=== PATIENT | female | born 1970 | race Caucasian/White ===

== ENCOUNTER 2016-06-22 08:19 | Outpatient (CLI) | payer MEDICAID ==
[~2016-06-22] VITALS: Ht 166.4 cm; Wt 123.8 kg
[~2016-06-22 08:19] MED LIST: ALBU8.5H2 IH; ALPR1TAB2 PO; CEFD300C3 PO; CLON1TAB PO; CLON2TAB PO; DCS100C PO; GEMF600T3 PO; HYDR-2856 PO; HYDR-34 PO; HYDR-3816 PO; IBP600T1 PO; IBUP-1773 PO; LEVO150T PO; LEVO175T3 PO; METF-380 PO; METR500T PO; NITR100C44 PO; OMEP-10 PO; OMEP40CA36 PO; SIMV20TA3 PO; SULF-222 PO; Simethicone PO
--- OUTSIDE RECORDS SUMMARY | 2016-06-22 08:23 | XMS REPORT | Continuity of Care Document ---
Author Author [facility] Organization [facility] Address Unknown Phone Unavailable Care Team Providers Care Mechanical Integrity Engineer Name Role Phone Ganesh Cam PCP [phone] Source Comments Some departments are not documenting in the electronic medical record. If you do not see the information that you expected, contact Release of Information in the Health Information Management department at [phone] for further assistance in locating additional records.[facility] Active Allergies and Adverse Reactions Allergen Noted Date Severity Reactions Comments Actos 11/03/2010 High SEE COMMENTS Blood sugar went from 200's to 600 after taking the Actos. Aspirin 10/12/2010 High ANAPHYLAXIS, HIVES Ciprofloxacin 10/12/2010 Medium HIVES Demerol 10/12/2010 High ANAPHYLAXIS Feels like an out of body experience. Then Severe Panic attack. Lavender (Lavandula 11/03/2010 High ANAPHYLAXIS Angustifolia) Mushroom 11/03/2010 High ANAPHYLAXIS Prednisone 10/12/2010 Medium SHORTNESS OF BREATH, PALPITATIONS Current Medications Prescription Sig. Disp. Refills Start End Date Status Date metformin (GLUCOPHAGE) Take 1,000 mg by mouth Active 500 mg PO tablet twice daily with meals. lovastatin(+) (MEVACOR) Take 40 mg by mouth at Active 40 mg PO tablet bedtime daily. gemfibrozil (LOPID) 600 Take 600 mg by mouth Active mg PO tablet twice daily. omeprazole DR(+) Take 40 mg by mouth Active (PRILOSEC) 40 mg PO daily. capsule IBUPROFEN IB PO Take 800 mg by mouth Active every 8 hours. ALBUTEROL IN Inhale 2 Inhalers by Active mouth as Needed. CLONAZEPAM (KLONOPIN PO) Take 1 mg by mouth three Active times daily. cyclobenzaprine Take 10 mg by mouth three Active (FLEXERIL) 10 mg PO times daily as needed. tablet hydrOXYzine (ATARAX) 25 Take 25 mg by mouth three Active mg PO tablet times daily as needed. calcitriol (ROCALTROL) Take 1 Cap by mouth twice 60 Cap 0 11/12/19 Active 0.25 mcg PO capsule daily. 11 calcium carbonate Take 2 Tabs by mouth 90 Tab 0 11/12/19 Active (OS-GUSTAVO) 1250 mg PO three times daily with 11 tablet meals. hydrocodone/acetaminophen Take 1 Tab by mouth every 60 Tab 0 11/12/19 Active (VICODIN) 5/500 mg PO 4 hours as needed for 11 tablet Pain. senna/docusate Take 1 Tab by mouth 60 Tab 0 11/12/19 Active (SENOKOT-S) 8.6/50 mg PO daily. 11 tablet Active Problems Not on file Social History Tobacco Use Types Packs/Day Years Used Date Current Every Day Smoker Cigarettes 1 28 Alcohol Use Drinks/Week oz/Week Comments Yes rare use Last Filed Vital Signs Vital Sign Reading Time Taken Blood Pressure 126/75 11/16/2010 1:22 PM CDT Pulse 83 11/16/2010 1:22 PM CDT Temperature 37.1 C (98.7 F) 11/16/2010 1:22 PM CDT Respiratory Rate - - Height 1.67 m (5' 5.75") 11/16/2010 1:22 PM CDT Weight 146.421 kg (322 lb 12.8 11/16/2010 1:22 PM CDT oz) Body Mass Index 52.5 11/16/2010 1:22 PM CDT Oxygen Saturation 96% 11/11/2010 9:56 AM CDT Plan of Care Health Maintenance Due Date Last Done Comments Physical (Comprehensive) 1977 Exam Pertussis Vaccine 1981 Tetanus Vaccine 1987 Cervical Cancer Screening 1991 Breast Cancer Screening 2010 Influenza Vaccine 02/02/2016 Results from Last 3 Months Not on file
[2016-06-22] MEDS ORDERED: IBUP-1773 PO (08:36)
[2016-06-22] MEDS ORDERED: ALPR2TAB6 PO (08:36)
[2016-06-22] MEDS ORDERED: OXYC-465 PO (08:36)
[2016-06-22] MEDS ORDERED: PANT40TA3 PO (08:36)
[2016-06-22] MEDS ORDERED: OXYC10TA55 PO (08:36)
== END 2016-06-22 08:37 ==
LOC: PREOP 08:19
PROVIDERS: ATTEND Orthopaedic Surgery
DX: M75.102 Unspecified rotator cuff tear or rupture of left shoulder, not specified as traumatic (principal)

== ENCOUNTER 2016-06-27 07:16 | Day surgery (SDC) | payer MEDICAID ==
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
[~2016-06-27] VITALS: Ht 166.4 cm; Wt 123.8 kg
[~2016-06-27 07:16] MED LIST changes: +ALPR2TAB6 PO; +OXYC-465 PO; +OXYC10TA55 PO; +PANT40TA3 PO
[2016-06-27 07:20] VITALS: BP 142/80
--- OUTSIDE RECORDS SUMMARY | 2016-06-27 07:21 | XMS REPORT | Continuity of Care Document ---
Author Author [facility] Organization [facility] Address Unknown Phone Unavailable Care Team Providers Care Hardware Engineering Manager Name Role Phone Ganesh Cam PCP [phone] Source Comments Some departments are not documenting in the electronic medical record. If you do not see the information that you expected, contact Release of Information in the Health Information Management department at [phone] for further assistance in locating additional records.[facility] Active Allergies and Adverse Reactions Allergen [...]
--- OUTSIDE RECORDS SUMMARY | 2016-06-27 07:21 | XMS REPORT | Continuity of Care Document ---
Author Author [facility] Organization [facility] Address Unknown Phone Unavailable Care Team Providers Care Drawing Supervisor Name Role Phone Ganesh Cam PCP [phone] Source Comments Some departments are not documenting in the electronic medical record. If you do not see the information that you expected, contact Release of Information in the Health Information Management department at [phone] for further assistance in locating additional records.[facility] Active Allergies and Adverse Reactions Allergen [...]
--- NOTE | 2016-06-27 07:27 | Progress Note-Pre Operative ---
Pre-Operative Progress Note H&P Reviewed The H&P was reviewed, patient examined and no changes noted. Date H&P Reviewed: Jun 27, 2016 Time H&P Reviewed: 07:27 Pre-Operative Diagnosis: left shoulder rotator cuff tear DORA BOONE MD Jun 27, 2016 07:27
--- NOTE | 2016-06-27 07:28 | Progress Note-Post Operative ---
Post-Operative Progess Note Java Mobile Developer Scott Weeks Pre-Operative Diagnosis left shoulder rotator cuff tear Post-Operative Diagnosis left shoulder SLAP tear, labral tear and impingement Post-Op Procedure Note Date of Procedure: Jun 27, 2016 Name of Procedure: left shoulder arthroscopic biceps tenotomy, labral debridement and acromioplasty Anesthesia Type GETA Estimated blood loss (mL): minimal Packing: none Specimen(s) collected none DORA BOONE MD Jun 27, 2016 07:28
[2016-06-27] MEDS ORDERED: oxyCODONE/APAP 5/325MG (PERCOCET 5) TABLET PO PRN (07:30)
[2016-06-27] MEDS ORDERED: ceFAZolin 1 GM/NS 50 ML IVPB IV ONE ×2 (07:45)
[2016-06-27] MEDS ORDERED: FAMOTIDINE 20MG/2ML IV (PEPCID) IV ONE (07:45)
[2016-06-27] MEDS: LACTATED RINGERS 1,000 ML IV PRN ×2 (08:07→09:45)
[2016-06-27] MEDS ORDERED: MIDAZOLAM 2 MG/2 ML (VERSED) VIAL ONE (08:21)
[2016-06-27] MEDS ORDERED: fentaNYL INJECTION 100 MCG/2 ML AMP ONE ×3 (08:21→10:12)
[2016-06-27] MEDS ORDERED: BUPIVACAINE 0.25% 30 ML (SENSORCAINE) VIAL ONE (08:33)
[2016-06-27] MEDS ORDERED: NEOSTIGMINE (BLOXIVERZ ) 1 MG/1ML 10 ML VIAL ONE (09:58)
[2016-06-27] MEDS ORDERED: LACTATED RINGERS 2,000 ML IV ONE (09:58)
[2016-06-27] MEDS ORDERED: GLYCOPYRROLATE 0.2 MG/ML (ROBINUL) 2 ML VIAL ONE (09:58)
[2016-06-27] MEDS ORDERED: proPOfol 200 MG/20 ML (DIPRIVAN) VIAL IV ONE (09:58)
[2016-06-27] MEDS ORDERED: ROCURONIUM 50 MG/5 ML (ZEMURON) VIAL IV ONE (09:58)
[2016-06-27] MEDS ORDERED: SEVOFLURANE (ULTANE) 15 ML INHAL SOLN ONE (09:58)
[2016-06-27] MEDS ORDERED: LIDOCAINE PF 2% 10 ML (XYLOCAINE) AMP ONE (09:58)
[2016-06-27] MEDS ORDERED: ONDANSETRON 4 MG/2 ML (SDV) Z0FRAN ONE (09:58)
[2016-06-27] MEDS: fentaNYL INJECTION 100 MCG/2 ML AMP IVP PRN ×3 (10:25→10:35)
[2016-06-27 11:10] VITALS: BP 131/98
[2016-06-27 11:40] VITALS: BP 121/71
[2016-06-27 12:10] VITALS: BP 116/61
[2016-06-27 16:44] VITALS: BP 116/61
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
== END 2016-06-27 12:45 | disposition home or self-care (01) ==
LOC: SDC 07:16
PROVIDERS: ATTEND Orthopaedic Surgery
DX: M75.102 Unspecified rotator cuff tear or rupture of left shoulder, not specified as traumatic (principal); E11.9 Type 2 diabetes mellitus without complications; K21.9 Gastro-esophageal reflux disease without esophagitis; F41.9 Anxiety disorder, unspecified; E03.9 Hypothyroidism, unspecified; Z85.850 Personal history of malignant neoplasm of thyroid; F17.210 Nicotine dependence, cigarettes, uncomplicated; Z11.2 Encounter for screening for other bacterial diseases; Z79.899 Other long term (current) drug therapy
CPT/HCPCS: 82962; 87081

== ENCOUNTER 2016-07-03 09:59 | Outpatient (RCR) | payer MEDICAID ==
--- OUTSIDE RECORDS SUMMARY | 2016-06-28 09:49 | XMS REPORT | Continuity of Care Document ---
Author Author [facility] Organization [facility] Address Unknown Phone Unavailable Care Team Providers Care Dermatology Nurse Practitioner Name Role Phone Ganesh Cam PCP [phone] Source Comments Some departments are not documenting in the electronic medical record. If you do not see the information that you expected, contact Release of Information in the Health Information Management department at [phone] for further assistance in locating additional records.[facility] Active Allergies and Adverse Reactions Allergen Noted [...]
== END 2016-07-09 09:20 | disposition home or self-care (01) ==
PROVIDERS: ATTEND Orthopaedic Surgery
DX: M25.512 Pain in left shoulder (principal)

== ENCOUNTER 2016-07-19 08:26 | Outpatient (CLI) | payer MEDICAID ==
[~2016-07-19] VITALS: Ht 166.4 cm; Wt 123.8 kg
--- OUTSIDE RECORDS SUMMARY | 2016-07-19 08:29 | XMS REPORT | Continuity of Care Document ---
Author Author [facility] Organization [facility] Address Unknown Phone Unavailable Care Team Providers Care Traffic Monitor Specialist Name Role Phone Ganesh Cam PCP [phone] Source Comments Some departments are not documenting in the electronic medical record. If you do not see the information that you expected, contact Release of Information in the Health Information Management department at [phone] for further assistance in locating additional records.[facility] Active Allergies and Adverse Reactions Allergen [...]
== END 2016-07-19 08:32 ==
LOC: PREOP 08:26
PROVIDERS: ATTEND Orthopaedic Surgery
DX: Z01.818 Encounter for other preprocedural examination (principal); M22.41 Chondromalacia patellae, right knee

== ENCOUNTER 2016-07-25 06:01 | Day surgery (SDC) | payer MEDICAID ==
[~2016-07-25] VITALS: Ht 166.4 cm; Wt 123.8 kg
--- OUTSIDE RECORDS SUMMARY | 2016-07-25 06:05 | XMS REPORT | Continuity of Care Document ---
Author Author [facility] Organization [facility] Address Unknown Phone Unavailable Care Team Providers Care Garment Folder Name Role Phone Ganesh Cam PCP [phone] Source Comments Some departments are not documenting in the electronic medical record. If you do not see the information that you expected, contact Release of Information in the Health Information Management department at [phone] for further assistance in locating additional records.[facility] Active Allergies and Adverse Reactions Allergen [...]
--- OUTSIDE RECORDS SUMMARY | 2016-07-25 06:06 | XMS REPORT | Continuity of Care Document ---
Author Author [facility] Organization [facility] Address Unknown Phone Unavailable Care Team Providers Care Endodontic Assistant Name Role Phone Ganesh Cam PCP [phone] Source Comments Some departments are not documenting in the electronic medical record. If you do not see the information that you expected, contact Release of Information in the Health Information Management department at [phone] for further assistance in locating additional records.[facility] Active Allergies and Adverse Reactions Allergen [...]
[2016-07-25] MEDS ORDERED: NS (IVPB) 50 ML ONE (06:33)
[2016-07-25] MEDS ORDERED: ceFAZolin 1,000 MG (ANCEF) VIAL ONE (06:33)
[2016-07-25 06:42] VITALS: BP 120/88
[2016-07-25] MEDS ORDERED: ceFAZolin 1 GM/NS 50 ML IVPB IV ONE ×2 (06:45)
[2016-07-25] MEDS ORDERED: CATHETER FLUSH 10 ML SYR IV PRN (06:45)
[2016-07-25] MEDS ORDERED: SEVOFLURANE (ULTANE) 15 ML INHAL SOLN ONE (06:52)
[2016-07-25] MEDS ORDERED: fentaNYL INJECTION 100 MCG/2 ML AMP ONE ×2 (06:52→07:48)
[2016-07-25] MEDS ORDERED: LIDOCAINE PF 2% 10 ML (XYLOCAINE) AMP ONE (06:52)
[2016-07-25] MEDS ORDERED: MIDAZOLAM 2 MG/2 ML (VERSED) VIAL ONE ×2 (06:52→06:55)
[2016-07-25] MEDS ORDERED: proPOfol 200 MG/20 ML (DIPRIVAN) VIAL IV ONE (06:52)
[2016-07-25] MEDS ORDERED: ONDANSETRON 4 MG/2 ML (SDV) Z0FRAN ONE (06:52)
[2016-07-25] MEDS ORDERED: LACTATED RINGERS 1,000 ML IV ONE ×2 (06:52→07:57)
[2016-07-25] MEDS ORDERED: FAMOTIDINE 20MG/2ML IV (PEPCID) ONE (06:56)
[2016-07-25] MEDS ORDERED: BUPIVACAINE 0.25% 30 ML (SENSORCAINE) VIAL ONE (07:08)
[2016-07-25] MEDS ORDERED: morphine PF (DURAMORPH) 10 MG/10 ML AMP ONE (07:08)
--- NOTE | 2016-07-25 07:12 | Progress Note-Pre Operative ---
Pre-Operative Progress Note H&P Reviewed The H&P was reviewed, patient examined and no changes noted. Date H&P Reviewed: Jul 25, 2016 Time H&P Reviewed: 07:11 Pre-Operative Diagnosis: right knee chondromalacia DORA BOONE MD Jul 25, 2016 07:12
--- NOTE | 2016-07-25 07:13 | Progress Note-Post Operative ---
Post-Operative Progess Note Firewood Cutter Scott Weeks Pre-Operative Diagnosis right knee chondromalacia Post-Operative Diagnosis right knee chondromalacia Post-Op Procedure Note Date of Procedure: Jul 25, 2016 Name of Procedure: right knee arthroscopic chondroplasty Anesthesia Type GETA Estimated blood loss (mL): minimal Packing: none Specimen(s) collected none DORA BOONE MD Jul 25, 2016 07:13
[2016-07-25] MEDS ORDERED: LACTATED RINGERS 1,000 ML IV PRN (07:22)
[2016-07-25] MEDS ORDERED: HYDROcodone/APAP 7.5 MG/325 MG (LORTAB, LORCET PLUS) TABLET PO PRN (07:30)
[2016-07-25] MEDS ORDERED: MIDAZOLAM 2 MG/2 ML (VERSED) VIAL IV ONE (07:30)
[2016-07-25] MEDS ORDERED: FAMOTIDINE 20MG/2ML IV (PEPCID) IV ONE (07:30)
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
--- NOTE | 2016-07-25 07:58 | Progress Note-Post Operative ---
Post-Operative Progess Note Operator Lights Scott Weeks Pre-Operative Diagnosis right knee chondromalacia Post-Operative Diagnosis right knee chondromalacia of the medial femoral condyle, medial tibial plateau, lateral tibial plateau, patella and trochlea Post-Op Procedure Note Date of Procedure: Jul 25, 2016 Name of Procedure: right knee arthroscopic chondroplasty of the medial femoral condyle, medial tibial plateau, lateral tibial plateau, patella and trochlea Anesthesia Type geta Estimated blood loss (mL): minimal Packing: none Specimen(s) collected none DORA BOONE MD Jul 25, 2016 07:58
[2016-07-25] MEDS ORDERED: ONDANSETRON 4 MG/2 ML (SDV) Z0FRAN IVP PRN (08:15)
[2016-07-25] MEDS ORDERED: fentaNYL INJECTION 100 MCG/2 ML AMP IVP PRN (08:15)
[2016-07-25 08:50] VITALS: BP 123/76
[2016-07-25 09:20] VITALS: BP 120/80
[2016-07-25 09:36] VITALS: BP 120/80
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
== END 2016-07-25 09:36 | disposition home or self-care (01) ==
LOC: SDC 06:01
PROVIDERS: ATTEND Orthopaedic Surgery
DX: M22.41 Chondromalacia patellae, right knee (principal); E11.9 Type 2 diabetes mellitus without complications; K21.9 Gastro-esophageal reflux disease without esophagitis; F41.9 Anxiety disorder, unspecified; E03.9 Hypothyroidism, unspecified; F17.210 Nicotine dependence, cigarettes, uncomplicated; Z11.2 Encounter for screening for other bacterial diseases
CPT/HCPCS: 82962; 87081

== ENCOUNTER → 2016-09-05 | Outpatient (CLI) | payer MEDICAID ==
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
== END ==
LOC: RAD 07:47
PROVIDERS: ATTEND Nurse Practitioner Family
DX: N60.11 Diffuse cystic mastopathy of right breast (principal); N60.12 Diffuse cystic mastopathy of left breast
CPT/HCPCS: 77066

== ENCOUNTER 2016-12-18 07:58 | Outpatient (RCR) | payer MEDICAID ==
[2016-12-18 08:53] LABS: BASOPHILS # (AUTO) 0.1 10^3/uL (0.0-0.1); BASOPHILS % (AUTO) 1 % (0-10); EOSINOPHILS # (AUTO) 0.3 10^3/uL (0.0-0.3); EOSINOPHILS % (AUTO) 3 % (0-10); LYMPHOCYTES # (AUTO) 2.3 X 10^3 (1.0-4.0); LYMPHOCYTES % (AUTO) 29 % (12-44); MEAN CORPUSCULAR HEMOGLOBIN 31 PG (25-34); MEAN CORPUSCULAR HGB CONC 33 G/DL (32-36); MEAN CORPUSCULAR VOLUME 96 FL (80-99); MEAN PLATELET VOLUME 11.1 FL (7.4-10.4); MONOCYTES # (AUTO) 0.5 X 10^3 (0.0-1.0); MONOCYTES % (AUTO) 6 % (0-12); NEUTROPHILS # (AUTO) 4.8 X 10^3 (1.8-7.8); NEUTROPHILS % (AUTO) 61 % (42-75); PLATELET COUNT 255 10^3/uL (130-400); RED BLOOD COUNT 4.56 10^6/uL (4.35-5.85); RED CELL DISTRIBUTION WIDTH 13.4 % (10.0-14.5); WHITE BLOOD COUNT 7.9 10^3/uL (4.3-11.0)
[2016-12-18 09:30] LABS: ALANINE AMINOTRANSFERASE 26 U/L (0-55); ALBUMIN 4.2 GM/DL (3.2-4.5); ANION GAP 8 MMOL/L (5-14); ASPARTATE AMINO TRANSFERASE 17 U/L (5-34); BILIRUBIN,TOTAL 0.3 MG/DL (0.1-1.0); BLOOD UREA NITROGEN 10 MG/DL (7-18); BUN/CREATININE RATIO 12; CALCIUM 9.2 MG/DL (8.5-10.1); CARBON DIOXIDE 26 MMOL/L (21-32); CHLORIDE 104 MMOL/L (98-107); CREATININE SERUM 0.84 MG/DL (0.60-1.30); GFR ESTIMATED > 60; GLUCOSE 237 MG/DL (70-105); POTASSIUM 4.4 MMOL/L (3.6-5.0); SODIUM 138 MMOL/L (135-145); TOTAL PROTEIN 7.5 GM/DL (6.4-8.2)
[2016-12-18 09:51] LABS: THYROID STIMULATING HORMONE 0.92 UIU/ML (0.35-4.94)
[2016-12-20 06:54] LABS: THYROGLOBULIN AUTOANTIBODY PT 0.03 Units (0.00-0.50); THYROGLOBULIN LEVELC <0.20 ng/mL (1.60-59.90)
[2017-01-28] MEDS ORDERED: OXYC10TA7 PO (13:28)
[2017-01-28] MEDS ORDERED: OXYC10TA55 PO (13:28)
== END 2017-03-02 | disposition home or self-care (01) ==
LOC: ONC 07:58
PROVIDERS: ATTEND Internal Medicine Hematology & Oncology
DX: C73 Malignant neoplasm of thyroid gland (principal); E89.0 Postprocedural hypothyroidism; E66.01 Morbid (severe) obesity due to excess calories; E11.9 Type 2 diabetes mellitus without complications; E78.5 Hyperlipidemia, unspecified; F41.9 Anxiety disorder, unspecified; R10.9 Unspecified abdominal pain; N89.8 Other specified noninflammatory disorders of vagina; Z79.899 Other long term (current) drug therapy
CPT/HCPCS: 36415; 80053; 84432; 84443; 85025; 86800; 99213

== ENCOUNTER → 2017-01-02 | Outpatient (CLI) | payer MEDICAID ==
--- NOTE | 2017-01-02 08:37 | Diagnostic Imaging Report ---
EXAMINATION: Digital diagnostic mammography was performed of the right breast with a Computer Aided Detection (CAD) system. INDICATION: Right breast lump and pain. COMPARISON: 09/05/2016. FINDINGS: The right breast is composed of scattered fibroglandular densities. The palpable area was marked with an underlying superficial 7 mm mass seen in the outer aspect of the right breast, new from the prior exam. Benign-appearing calcifications are seen. No other change is seen. IMPRESSION: There is a superficial oval 7 mm mass along the outer aspect of the right breast at the palpable area. An ultrasound evaluation is pending. ACR BI-RADS Category 0: Incomplete. (Needs additional imaging evaluation). Result letter will be mailed to the patient. Note: At least 10% of breast cancer is not imaged by mammography. Dictated by: Dictated on workstation # [id number]
--- NOTE | 2017-01-02 09:33 | Diagnostic Imaging Report ---
EXAMINATION: Right breast ultrasound. INDICATION: Followup medial lump. Findings: The palpable lump at 9:30 o'clock position 8 cm from the nipple corresponds to a isoechoic lobulated circumscribed lesion measuring 0.7 x 0.4 x 0.6 CM. This is just deep to the skin and is probably arising from the breast tissue rather than the deep layer of the skin, although this is difficult to confirm. There is no internal vasculature with color Doppler and no shadowing. There are scattered other cysts seen upon scanning the four-quadrants and subareolar region most prominent at 9:30 position with slight internal decrease suggested smaller compared to the prior exam of 09/05/16 suggestive of benign etiology. IMPRESSION: Indeterminate 7 mm superficial lump probably arising from the breast tissue rather than the deep portion of the skin. Features are indeterminate but in favor of benign etiology. Since this is superficial and a palpable lump, then clinical evaluation and consideration for surgical resection is recommended. MRI could be considered. If clinically this is also not suspicious, then a followup study in 3 months with mammography and ultrasound is recommended for close followup. BI-RADS 3. ACR BI-RADS Category 3: Probably benign findings. Dictated by: Dictated on workstation # [id number]
== END ==
LOC: RAD 07:31
PROVIDERS: ATTEND Nurse Practitioner Family
DX: N63 Unspecified lump in breast (principal)
CPT/HCPCS: 76641

== ENCOUNTER 2017-01-28 05:32 | Outpatient (CLI) | payer MEDICAID ==
[~2017-01-28] VITALS: Ht 167.6 cm; Wt 123.8 kg
[2017-01-28] MEDS ORDERED: OXYC10TA7 PO (13:28)
[2017-01-28] MEDS ORDERED: OXYC10TA55 PO (13:28)
== END 2017-01-28 13:42 ==
LOC: PREOP 05:32
PROVIDERS: ATTEND Surgery
DX: Z01.818 Encounter for other preprocedural examination (principal); N63 Unspecified lump in breast

== ENCOUNTER 2017-01-31 07:07 | Day surgery (SDC) | payer MEDICAID ==
[~2017-01-31] VITALS: Ht 167.6 cm; Wt 123.8 kg
[~2017-01-31 07:07] MED LIST changes: +OXYC10TA7 PO
--- OUTSIDE RECORDS SUMMARY | 2017-01-31 07:11 | XMS REPORT | Clinical Summary ---
Author Author [facility] Organization [facility] Address Unknown Phone Unavailable Care Team Providers Care Rn Triage Name Role Phone PCP Unavailable Source Comments Some departments are not documenting in the electronic medical record. If you do not see the information that you expected, contact Release of Information in the Health Information Management department at [phone] for further assistance in locating additional records.[facility] Allergies Active Allergy Reactions Severity Noted Date Comments Pioglitazone SEE COMMENTS High 11/03/2010 Blood sugar went from 200's to 600 after taking the Actos. Aspirin ANAPHYLAXIS, HIVES High 10/12/2010 Meperidine ANAPHYLAXIS High 10/12/2010 Feels like an out of body experience. Then Severe Panic attack. Lavender (Lavandula ANAPHYLAXIS High 11/03/2010 Angustifolia) Mushroom ANAPHYLAXIS High 11/03/2010 Ciprofloxacin HIVES Medium 10/12/2010 Prednisone SHORTNESS OF BREATH, Medium 10/12/2010 PALPITATIONS Current Medications Prescription Sig. Disp. Refills [...] Use Drinks/Week oz/Week Comments Yes rare use Sex Assigned at Date Recorded Not on file Last Filed Vital Signs Vital Sign Reading Time Taken Blood Pressure 126/75 11/16/2010 1:22 PM CDT Pulse 83 11/16/2010 1:22 PM CDT Temperature 37.1 C (98.7 F) 11/16/2010 1:22 PM CDT Respiratory Rate - - Oxygen Saturation 96% 11/11/2010 9:56 AM CDT Inhaled Oxygen - - Concentration Weight 146.4 kg (322 lb 12.8 oz) 11/16/2010 1:22 PM CDT Height 167 cm (5' 5.75") 11/16/2010 1:22 PM CDT Body Mass Index 52.5 11/16/2010 1:22 PM CDT Plan of Treatment Health Maintenance Due Date Last Done Comments PHYSICAL (COMPREHENSIVE) 1977 EXAM PERTUSSIS VACCINE 1981 TETANUS VACCINE 1987 CERVICAL CANCER SCREENING 2000 BREAST CANCER SCREENING 2010 INFLUENZA VACCINE 02/01/2017 Results Not on filefrom Last 3 Months
--- OUTSIDE RECORDS SUMMARY | 2017-01-31 07:11 | XMS REPORT ---
Author Author DORA LEVINE [facility] eClinicalWorks Address Unknown Phone Unavailable Care Team Providers Care Nurse Clinician Name Role Phone DORA LEVINE CP Unavailable Allergies, Adverse Reactions, Alerts Substance Reaction Event Type PredniSONE increased heart rate Drug Allergy Lyrica leg swelling Drug Allergy Demerol panic attacks Drug Allergy Cipro rash Drug Allergy Aspirin rash Drug Allergy Problems Problem Type Condition Code Onset Dates Condition Status Problem Asthma, unspecified, unspecified status 493.90 Active Problem Benign paroxysmal positional vertigo 386.11 Active Problem Sciatica 724.3 Active Problem Thyroid cancer, medullary carcinoma C73 Active Problem Post-surgical hypothyroidism E89.0 Active Problem Other fatigue R53.83 Active Problem Anxiety 300.00 Active Problem Postsurgical hypothyroidism 244.0 Active Problem DM w/o complication type 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 Active Problem Right knee pain 719.46 Active Assessment Post-surgical hypothyroidism E89.0 Active Assessment Thyroid cancer, medullary carcinoma C73 Active Assessment DM w/o complication type II E11.9 Active Problem Other chronic pain 338.29 Active Problem Diabetes mellitus without mention of complication, type II or unspecified type, not stated as uncontrolled 250.00 Active Assessment Encounter for immunization Z23 Active Problem Pain in joint, lower leg 719.46 Active Assessment Other fatigue R53.83 Active Problem Chronic gingivitis, plaque induced 523.10 Active Medications Medication Code System Code Instructions Start Date End Date Status Dosage Simvastatin [facility] [address]-61 20 MG Orally Once a day take 1 tablet Prilosec [facility] NAMED [facility] [address]-09 20 mg 1 capsule by Oral route 2 times per day Ibuprofen [facility] NAMED [facility] [address]-35 800 MG Three times a day, PRN. Must last one month take 1 tablet by Oral route with food HydrOXYzine HCl [facility] NAMED [facility] [address]-72 25 MG Orally 3 times a day 1 tablet as needed metformin [facility] NAMED [facility] [address]-31 1,000 mg 1 TAB orally 2 times a day 1 tablet by Oral route 2 times per day Gemfibrozil [facility] NAMED [facility] [address]-54 600 MG Orally Twice a day 1 tablet by Oral route 2 times per day Hydrocodone-Acetaminophen FOR[facility] NAMED [facility] [address]-59 7.5-325 MG Orally 3 times a day as needed November 02, 2014 1 tablet as needed levothyroxine [facility] NAMED [facility] 0 175 mcg 1tab daily except for Sundays-take 1 1/2 tabs Xanax [facility] NAMED [facility] [address]-57 1 MG Orally 3 times a day October 26, 2014 1 tablet Amitriptyline HCl [facility] NAMED [facility] [address]-40 25 MG Orally Once a day October 19, 2014 .5-1.5 tablet at bedtime ProAir HFA [facility] NAMED [facility] [address]-40 90 mcg/actuation Inhalation 4 times a day inhale 2 puffs by Inhalation route every 4 hours as needed PRN shortness of breath/cough Parafon Forte DSC [facility] NAMED [facility] [address]-10 500 MG Orally 3 times a day 1 tablet Procedures Procedure Coding System Code Date ASSAY THYROID STIM HORMONE CPT-4 02405 Mar 03, 2015 COMPLETE CBC W/AUTO DIFF WBC CPT-4 56653 Mar 03, 2015 COMPREHEN METABOLIC PANEL CPT-4 58630 Mar 03, 2015 GLYCATED HEMOGLOBIN TEST CPT-4 95909 Mar 03, 2015 VENIPUNCT, ROUTINE* CPT-4 68948 Mar 03, 2015 Office Visit, Est Pt., Level 3 CPT-4 14060 Mar 03, 2015 SINGLE IMMUNIZATION ADMIN CPT-4 81042 Mar 03, 2015 FLUARIX QUAD (3 & UP)-GSK-2014 CPT-4 36171 Mar 03, 2015 Vital Signs Date/Time: Mar 03, 2015 Temperature 98.5 F Weight 249 lbs Height 66 in BMI 40.19 Index Blood Pressure Diastolic 68 mmHg Blood Pressure Systolic 110 mmHg Cardiac Monitoring Heart Rate 75 bpm Results Name Result Date Reference Range Unit Abnormality Flag ROUTINE VENIPUNCTURE TSH Immunizations Vaccine Administration Date FLUARIX QUAD (3 & UP)-GSK-2014Mar 03, 2015 Summary Purpose eClinicalWorks Submission
--- OUTSIDE RECORDS SUMMARY | 2017-01-31 07:11 | XMS REPORT ---
Author Author DORA LEVINE [facility] eClinicalWorks Address Unknown Phone Unavailable Care Team Providers Care Parts Salesman Name Role Phone DORA LEVINE CP Unavailable Allergies, Adverse Reactions, Alerts Substance Reaction Event Type PredniSONE increased heart rate Drug Allergy Lyrica leg swelling Drug Allergy Hydrocodone-Acetaminophen itching Drug Allergy Demerol panic attacks Drug Allergy Cipro rash Drug Allergy Aspirin rash Drug Allergy Problems Problem Type Condition Code Onset Dates Condition Status Problem Sciatica 724.3 Active Problem Postsurgical hypothyroidism 244.0 Active Problem Benign paroxysmal positional vertigo 386.11 Active Problem Other fatigue R53.83 Active Problem Thyroid cancer, medullary carcinoma C73 Active Problem Myalgia M79.1 Active Problem Right knee pain 719.46 Active Problem Anxiety 300.00 Active Problem Post-surgical hypothyroidism E89.0 Active Problem DM w/o complication type II E11.9 Active Assessment Myalgia M79.1 Active Assessment Diabetes mellitus without mention of complication, type II or unspecified type, not stated as uncontrolled 250.00 Active Problem Diabetes mellitus without mention of complication, type II or unspecified type, not stated as uncontrolled 250.00 Active Problem Pain in joint, lower leg 719.46 Active Assessment Postsurgical hypothyroidism 244.0 Active Problem Chronic gingivitis, plaque induced 523.10 Active Problem Other chronic pain 338.29 Active Problem Asthma, unspecified, unspecified status 493.90 Active Medications Medication Code System Code Instructions Start Date End Date Status Dosage HydrOXYzine HCl [facility] [address]-98 25 MG Orally 3 times a day 1 tablet as needed Parafon Forte DSC [facility] [address]-32 500 MG Orally 3 times a day 1 tablet ProAir HFA [facility] [address]-39 90 mcg/actuation Inhalation 4 times a day inhale 2 puffs by Inhalation route every 4 hours as needed PRN shortness of breath/cough metformin [facility] [address]-44 1,000 mg 1 TAB orally 2 times a day 1 tablet by Oral route 2 times per day Diclofenac Potassium [facility] [address]-85 50 MG Orally Twice a day Mar 14, 2015 1 tablet Simvastatin [facility] [address]-57 20 MG Orally Once a day take 1 tablet Amitriptyline HCl [facility] [address]-61 25 MG Orally Once a day October 19, 2014 .5-1.5 tablet at bedtime Gemfibrozil [facility] [address]-33 600 MG Orally Twice a day 1 tablet by Oral route 2 times per day levothyroxine [facility] 0 150 1tab daily Prilosec [facility] [address]-20 20 mg 1 capsule by Oral route 2 times per day Xanax [facility] [address]-84 1 MG Orally 3 times a day. DO NOT FILL UNTIL October 26, 2014 1 tablet Procedures Procedure Coding System Code Date Office Visit, Est Pt., Level 3 CPT-4 35153 Mar 14, 2015 Vital Signs Date/Time: Mar 14, 2015 Temperature 98.1 F Weight 251.6 lbs Height 66 in BMI 40.60 Index Blood Pressure Diastolic 76 mmHg Blood Pressure Systolic 120 mmHg Cardiac Monitoring Heart Rate 73 bpm Results No Known Results Summary Purpose eClinicalWorks Submission
--- OUTSIDE RECORDS SUMMARY | 2017-01-31 07:11 | XMS REPORT ---
Author Author DORA LEVINE Organization [employer] Address Unknown Phone Unavailable Care Team Providers Care Applied Research Director Name Role Phone DORA LEVINE CP Unavailable Allergies No Known Allergies Problems Problem Type Condition Code Onset Dates [...] w/o complication type II E11.9 Active Problem Diabetes mellitus without mention of complication, type II or unspecified type, not stated as uncontrolled 250.00 Active Problem Pain in joint, lower leg 719.46 Active Problem Chronic gingivitis, plaque induced 523.10 Active Problem Other chronic pain 338.29 Active Problem Asthma, unspecified, unspecified status 493.90 Active Medications Medication Code System Code Instructions Start Date End Date Status Dosage Test strips NDC 0 Test Strips Once a day DX: E11.9 Apr 15, 2015 as directed Results No Known Results Summary Purpose eClinicalWorks Submission
--- OUTSIDE RECORDS SUMMARY | 2017-01-31 07:12 | XMS REPORT ---
Author Author DORA LEVINE Organization [employer] Address Unknown Phone Unavailable Care Team Providers Care Healthcare Science Specialist Name Role Phone DORA LEVINE CP Unavailable [...] Instructions Start Date End Date Status Dosage Roxy Redmond [facility] [address]-71 100 MG Orally Three times a day Apr 18, 2015 1 capsule as needed Results No Known Results Summary Purpose eClinicalWorks Submission
--- OUTSIDE RECORDS SUMMARY | 2017-01-31 07:12 | XMS REPORT ---
Author Author DORA LEVINE Organization [employer] Address Unknown Phone Unavailable Care Team Providers Care Director Of Global Marketing Name Role Phone DORA LEVINE CP Unavailable [...] Instructions Start Date End Date Status Dosage Metformin HCl [facility] [address]-89 1000 MG Orally Twice a day Mar 21, 2015 1 tablet with meals Prilosec [facility] [address]-95 20 MG Orally 2 times a day 1 capsule ProAir HFA [facility] [address]-65 90 mcg/actuation Inhalation 4 times a day inhale 2 puffs by Inhalation route every 4 hours as needed PRN shortness of breath/cough Results No Known Results Summary Purpose eClinicalWorks Submission
--- OUTSIDE RECORDS SUMMARY | 2017-01-31 07:12 | XMS REPORT ---
Author Author DORA LEVINE Organization [employer] Address Unknown Phone Unavailable Care Team Providers Care Sourcing Intern Name Role Phone DORA LEVINE CP Unavailable Allergies No Known Allergies Problems Problem Type Condition Code Onset Dates Condition Status Problem Benign paroxysmal positional vertigo 386.11 Active Problem Anxiety 300.00 Active Problem Postsurgical hypothyroidism 244.0 Active Problem Myalgia M79.1 Active Problem Other fatigue R53.83 Active Problem Cervicalgia M54.2 Active Problem DM w/o complication type II E11.9 Active Problem Right knee pain 719.46 Active Problem Thyroid cancer, medullary carcinoma C73 Active Problem Post-surgical hypothyroidism E89.0 Active Problem Pain in joint, lower leg 719.46 Active Problem Chronic gingivitis, plaque induced 523.10 Active Problem Other chronic pain 338.29 Active Problem Asthma, unspecified, unspecified status 493.90 Active Problem Diabetes mellitus without mention of complication, type II or unspecified type, not stated as uncontrolled 250.00 Active Problem Sciatica 724.3 Active Medications Medication Code System Code Instructions Start Date End Date Status Dosage Ofloxacin [facility] [address]-97 0.3 % Otic Once a day May 09, 2015 May 16, 2015 5 drops into affected ear Results No Known Results Summary Purpose eClinicalWorks Submission
--- OUTSIDE RECORDS SUMMARY | 2017-01-31 07:12 | XMS REPORT ---
Author Author DORA LEVINE Organization [employer] Address Unknown Phone Unavailable Care Team Providers Care Route Sales Manager Name Role Phone DORA LEVINE CP Unavailable Allergies No Known Allergies Problems Problem Type Condition Code Onset Dates Condition Status Problem Postsurgical hypothyroidism 244.0 Active Problem Right knee pain 719.46 Active Problem Anxiety 300.00 Active Problem Cervicalgia M54.2 Active Problem Myalgia M79.1 Active Problem Pain in joint, lower leg, right M25.561 Active Problem Post-surgical hypothyroidism E89.0 Active Problem DM w/o complication type II E11.9 Active Problem Other fatigue R53.83 Active Problem Thyroid cancer, medullary carcinoma C73 Active Problem Other chronic pain 338.29 Active Problem Chronic gingivitis, plaque induced 523.10 Active Problem Asthma, unspecified, unspecified status 493.90 Active Problem Diabetes mellitus without mention of complication, type II or unspecified type, not stated as uncontrolled 250.00 Active Problem Sciatica 724.3 Active Problem Pain in joint, lower leg 719.46 Active Problem Benign paroxysmal positional vertigo 386.11 Active Medications No Known Medications Results No Known Results Summary Purpose eClinicalWorks Submission
--- OUTSIDE RECORDS SUMMARY | 2017-01-31 07:12 | XMS REPORT ---
Author Author DORA LEVINE Organization [employer] Address Unknown Phone Unavailable Care Team Providers Care B2B Sales Professional Name Role Phone DORA LEVINE CP Unavailable [...] Instructions Start Date End Date Status Dosage Gemfibrozil [facility] [address]-23 600 MG Orally Twice a day 1 tablet by Oral route 2 times per day Metformin HCl [facility] [address]-01 1000 MG Orally Twice a day Mar 21, 2015 1 tablet with meals Prilosec [facility] [address]-19 20 MG Orally 2 times a day 1 capsule Results No Known Results Summary Purpose eClinicalWorks Submission
--- OUTSIDE RECORDS SUMMARY | 2017-01-31 07:12 | XMS REPORT ---
Author Author DORA LEVINE Organization [employer] Address Unknown Phone Unavailable Care Team Providers Care General Distillery Worker Name Role Phone DORA LEVINE CP Unavailable [...] Instructions Start Date End Date Status Dosage Clonazepam [facility] [address]-34 1 MG Orally Twice a day Apr 06, 2015 0.5-1 tablet Results No Known Results Summary Purpose eClinicalWorks Submission
--- OUTSIDE RECORDS SUMMARY | 2017-01-31 07:12 | XMS REPORT ---
Author Author DORA LEVINE [facility] eClinicalWorks Address Unknown Phone Unavailable Care Team Providers Care Garment Cutter Name Role Phone DORA LEVINE CP Unavailable Allergies, Adverse Reactions, Alerts Substance Reaction Event Type PredniSONE increased heart rate Drug Allergy Lyrica leg swelling Drug Allergy Hydrocodone-Acetaminophen itching Drug Allergy Demerol panic attacks Drug Allergy Cipro rash Drug Allergy Aspirin rash Drug Allergy Problems Problem Type Condition Code Onset Dates Condition Status Problem Right knee pain 719.46 Active Problem Post-surgical hypothyroidism E89.0 Active Problem DM w/o complication type II E11.9 Active Problem Tobacco abuse Z72.0 Active Assessment Other chronic pain 338.29 Active Problem Pain in joint, lower leg, right M25.561 Active Assessment Tobacco abuse Z72.0 Active Problem Eustachian tube dysfunction, bilateral H69.83 Active Problem Other fatigue R53.83 Active Problem Thyroid cancer, medullary carcinoma C73 Active Problem Cervicalgia M54.2 Active Problem Myalgia M79.1 Active Problem Diabetes mellitus without mention of complication, type II or unspecified type, not stated as uncontrolled 250.00 Active Problem Pain in joint, lower leg 719.46 Active Assessment Eustachian tube dysfunction, bilateral H69.83 Active Problem Other chronic pain 338.29 Active Problem Sciatica 724.3 Active Problem Benign paroxysmal positional vertigo 386.11 Active Problem Chronic gingivitis, plaque induced 523.10 Active Problem Postsurgical hypothyroidism 244.0 Active Problem Asthma, unspecified, unspecified status 493.90 Active Problem Anxiety 300.00 Active Medications Medication Code System Code Instructions Start Date End Date Status Dosage Clonazepam [facility] [address]-76 1 MG Orally 3 times a day Apr 06, 2015 0.5-1 tablet Amitriptyline HCl [facility] [address]-80 25 MG Orally Once a day October 19, 2014 .5-1.5 tablet at bedtime Prilosec [facility] [address]-88 20 MG Orally 2 times a day 1 capsule Ibuprofen [facility] [address]-21 800 MG Orally Three times a day May 20, 2015 1 tablet Gemfibrozil [facility] [address]-40 600 MG Orally Twice a day 1 tablet by Oral route 2 times per day Nicotine Polacrilex [facility] [address]-39 2 MG Mouth/Throat 24 time(s) a day Jun 29, 2015 1 piece as needed Test strips ND 0 Test Strips Once a day DX: E11.9 Apr 15, 2015 as directed levothyroxine [facility] 0 150 1tab daily ProAir HFA [facility] [address]-67 90 mcg/actuation Inhalation 4 times a day inhale 2 puffs by Inhalation route every 4 hours as needed PRN shortness of breath/cough Metformin HCl [facility] [address]-79 1000 MG Orally Twice a day Mar 21, 2015 1 tablet with meals HydrOXYzine HCl [facility] [address]-76 25 MG Orally 3 times a day 1 tablet as needed Percocet [facility] [address]-76 5-325 MG Orally 3 times a day May 30, 2015 1 tablet as needed Norflex [facility] [address]-19 100 MG Orally every 12 hrs Mar 22, 2015 1 tablet Claritin [facility] [address]-08 10 MG Orally Once a day Jun 29, 2015 1 tablet Simvastatin [facility] [address]-62 20 MG Orally Once a day. NEED FASTING LAB PRIOR TO FURTHER REFILLS take 1 tablet Meclizine HCl [facility] [address]-74 25 MG Orally 3 times a day May 30, 2015 1 tablet as needed Diclofenac Potassium [facility] [address]-42 50 MG Orally Twice a day Mar 14, 2015 1 tablet Procedures Procedure Coding System Code Date Office Visit, Est Pt., Level 3 CPT-4 82982 Jun 29, 2015 Vital Signs Date/Time: Jun 29, 2015 Temperature 98.3 F Weight 260.8 lbs Height 66 in BMI 42.09 Index Blood Pressure Diastolic 84 mmHg Blood Pressure Systolic 132 mmHg Cardiac Monitoring Heart Rate 79 bpm Results No Known Results Summary Purpose eClinicalWorks Submission
--- OUTSIDE RECORDS SUMMARY | 2017-01-31 07:13 | XMS REPORT ---
Author Author DORA LEVINE [facility] eClinicalWorks Address Unknown Phone Unavailable Care Team Providers Care Erection Shop Supervisor Name Role Phone DORA LEVINE CP Unavailable [...] Problem Thyroid cancer, medullary carcinoma C73 Active Assessment Cervicalgia M54.2 Active Problem Other chronic pain 338.29 Active Assessment Pain in joint, lower leg, right M25.561 Active Assessment Myalgia M79.1 Active Problem Chronic gingivitis, plaque induced 523.10 Active Problem Asthma, unspecified, unspecified status 493.90 Active Problem Diabetes mellitus without mention of complication, type II or unspecified type, not stated as uncontrolled 250.00 Active Problem Sciatica 724.3 Active Problem Pain in joint, lower leg 719.46 Active Problem Benign paroxysmal positional vertigo 386.11 Active Medications Medication Code System Code Instructions Start Date End Date Status Dosage Clonazepam [facility] [address]-84 1 MG Orally Twice a day Apr 06, 2015 0.5-1 tablet Metformin HCl [facility] [address]-44 1000 MG Orally Twice a day Mar 21, 2015 1 tablet with meals Percocet [facility] [address]-05 5-325 MG Orally 3 times a day May 30, 2015 1 tablet as needed levothyroxine [facility] 0 150 1tab daily ProAir HFA [facility] [address]-04 90 mcg/actuation Inhalation 4 times a day inhale 2 puffs by Inhalation route every 4 hours as needed PRN shortness of breath/cough Simvastatin [facility] [address]-43 20 MG Orally Once a day take 1 tablet Amitriptyline HCl [facility] [address]-35 25 MG Orally Once a day October 19, 2014 .5-1.5 tablet at bedtime Meclizine HCl [facility] [address]-37 25 MG Orally 3 times a day May 30, 2015 1 tablet as needed Prilosec [facility] [address]-55 20 MG Orally 2 times a day [address] [facility] [address]-35 100 MG Orally every 12 hrs Mar 22, 2015 1 tablet Diclofenac Potassium [facility] [address]-93 50 MG Orally Twice a day Mar 14, 2015 1 tablet Test strips [facility] 0 Test Strips Once a day DX: E11.9 Apr 15, 2015 as directed HydrOXYzine HCl [facility] [address]-42 25 MG Orally 3 times a day 1 tablet as needed Ibuprofen [facility] [address]-55 800 MG Orally Three times a day May 20, 2015 1 tablet Gemfibrozil [facility] [address]-05 600 MG Orally Twice a day 1 tablet by Oral route 2 times per day Procedures Procedure Coding System Code Date Office Visit, Chirag Pt., Level 3 CPT-4 15115 May 30, 2015 Vital Signs Date/Time: May 30, 2015 Temperature 98.2 F Weight 256.7 lbs Height 66 in BMI 41.43 Index Blood Pressure Diastolic 80 mmHg Blood Pressure Systolic 130 mmHg Cardiac Monitoring Heart Rate 80 bpm Results No Known Results Summary Purpose eClinicalWorks Submission
--- OUTSIDE RECORDS SUMMARY | 2017-01-31 07:13 | XMS REPORT ---
Author Author DORA LEVINE Organization eClinicalWorks Address Unknown Phone Unavailable Care Team Providers Care Field Artillery Radar Operator Name Role Phone DORA LEVINE CP Unavailable Allergies No Known Allergies Problems Problem Type Condition Code Onset Dates Condition Status Problem Post-surgical hypothyroidism E89.0 Active Problem Other fatigue R53.83 Active Problem Thyroid cancer, medullary carcinoma C73 Active Problem Dysthymia F34.1 Active Problem Eustachian tube dysfunction, bilateral H69.83 Active Problem Pain in left knee M25.562 Active Problem Cervicalgia M54.2 Active Problem Myalgia M79.1 Active Problem Tobacco abuse Z72.0 Active Problem Pain in joint, lower leg, right M25.561 Active Problem Other chronic pain 338.29 Active Problem Postsurgical hypothyroidism 244.0 Active Problem Anxiety 300.00 Active Problem Asthma, unspecified, unspecified status 493.90 Active Problem Right knee pain 719.46 Active Problem Sciatica 724.3 Active Problem DM w/o complication type II E11.9 Active Medications Medication Code System Code Instructions Start Date End Date Status Dosage Clonazepam [facility] [address]-38 2 MG Orally 3 times a day, PRN Apr 06, 2015 0.5-1 tablet must last one month Results No Known Results Summary Purpose eClinicalWorks Submission
--- OUTSIDE RECORDS SUMMARY | 2017-01-31 07:13 | XMS REPORT ---
Author Author DORA LEVINE Organization eClinicalWorks Address Unknown Phone Unavailable Care Team Providers Care Motion Picture Operator Name Role Phone DORA LEVINE CP [...] Problem Right knee pain 719.46 Active Problem Other chronic pain 338.29 Active Problem Diabetes mellitus without mention of complication, type II or unspecified type, not stated as uncontrolled 250.00 Active Problem Pain in joint, lower leg 719.46 Active Problem Chronic gingivitis, plaque induced 523.10 Active Medications No Known Medications Results No Known Results Summary Purpose eClinicalWorks Submission
--- OUTSIDE RECORDS SUMMARY | 2017-01-31 07:13 | XMS REPORT ---
Author Author DORA LEVINE Organization eClinicalWorks Address Unknown Phone Unavailable Care Team Providers Care Web Press Jogger Name Role Phone DORA LEVINE CP Unavailable [...] Instructions Start Date End Date Status Dosage ProAir HFA [facility] [address]-42 90 mcg/actuation Inhalation 4 times a day inhale 2 puffs by Inhalation route every 4 hours as needed PRN shortness of breath/cough Ibuprofen [facility] [address]-63 800 MG Orally Three times a day May 20, 2015 1 tablet Clonazepam [facility] [address]-38 1 MG Orally Twice a day Apr 06, 2015 0.5-1 tablet Results No Known Results Summary Purpose eClinicalWorks Submission
--- OUTSIDE RECORDS SUMMARY | 2017-01-31 07:13 | XMS REPORT ---
Author Author DORA LEVINE Organization eClinicalWorks Address Unknown Phone Unavailable Care Team Providers Care Quality Measurement Specialist Name Role Phone DORA LEVINE CP [...] Instructions Start Date End Date Status Dosage Xanax [facility] [address]-68 1 MG Orally 3 times a day. DO NOT FILL UNTIL October 26, 2014 1 tablet Hydrocodone-Acetaminophen [facility] [address]-29 7.5-325 MG Orally 3 times a day , PRN. DO NOT FILL UNTIL 03/10/15 November 02, 2014 1 tablet as needed Results No Known Results Summary Purpose eClinicalWorks Submission
--- OUTSIDE RECORDS SUMMARY | 2017-01-31 07:13 | XMS REPORT ---
Author Author DORA LEVINE [facility] eClinicalWorks Address Unknown Phone Unavailable Care Team Providers Care Production Troubleshooter Name Role Phone DORA LEVINE CP Unavailable Allergies, Adverse Reactions, Alerts Substance Reaction Event Type PredniSONE increased heart rate Drug Allergy Lyrica leg swelling Drug Allergy Demerol panic attacks Drug Allergy Cipro rash Drug Allergy Aspirin rash Drug Allergy Problems Problem Type Condition ICD-9 Code Onset Dates Condition Status Problem Other chronic pain 338.29 Active Problem Pain in joint, lower leg 719.46 Active Problem Diabetes mellitus without mention of complication, type II or unspecified type, not stated as uncontrolled 250.00 Active Assessment Sciatica 724.3 Active Assessment URI (upper respiratory infection) 465.9 Active Problem Anxiety 300.00 Active Problem Postsurgical hypothyroidism 244.0 Active Problem Right knee pain 719.46 Active Problem Asthma, unspecified, unspecified status 493.90 Active Problem Chronic gingivitis, plaque induced 523.10 Active Problem Benign paroxysmal positional vertigo 386.11 Active Problem Sciatica 724.3 Active Medications Medication Code System Code Instructions Start Date End Date Status Dosage Parafon Forte DSC [facility] [address]-96 500 MG Orally 3 times a day 1 tablet levothyroxine [place] 0 175 mcg 1tab daily except for Sundays-take 1 1/2 tabs Ibuprofen [facility] [address]-05 800 MG Three times a day, PRN. Must last one month take 1 tablet by Oral route with food HydrOXYzine HCl [facility] [address]-07 25 MG Orally 3 times a day 1 tablet as needed Hydrocodone-Acetaminophen [facility] [address]-07 7.5-325 MG Orally 3 times a day as needed November 02, 2014 1 tablet as needed Prilosec [facility] [address]-95 20 mg 1 capsule by Oral route 2 times per day Simvastatin [facility] [address]-06 20 MG Orally Once a day take 1 tablet metformin [facility] [address]-67 1,000 mg 1 TAB orally 2 times a day 1 tablet by Oral route 2 times per day Xanax [facility] [address]-98 1 MG Orally 3 times a day October 26, 2014 1 tablet Amitriptyline HCl [facility] [address]-05 25 MG Orally Once a day October 19, 2014 .5-1.5 tablet at bedtime ProAir HFA [facility] [address]-98 90 mcg/actuation Inhalation 4 times a day inhale 2 puffs by Inhalation route every 4 hours as needed PRN shortness of breath/cough Gemfibrozil [facility] [address]-83 600 MG Orally Twice a day 1 tablet by Oral route 2 times per day Procedures Procedure Coding System Code Date Office Visit, Est Pt., Level 3 CPT-4 14986 Feb 08, 2015 Vital Signs Date/Time: Feb 08, 2015 Temperature 98.4 F Weight 50 lbs Height 66 in BMI 8.07 Index Blood Pressure Diastolic 80 mmHg Blood Pressure Systolic 120 mmHg Cardiac Monitoring Heart Rate 80 bpm Results No Known Results Summary Purpose eClinicalWorks Submission
--- OUTSIDE RECORDS SUMMARY | 2017-01-31 07:14 | XMS REPORT ---
Author Author DORA LEVINE [facility] eClinicalWorks Address Unknown Phone Unavailable Care Team Providers Care Pleater Hand Name Role Phone DORA LEVINE CP Unavailable Allergies, Adverse Reactions, Alerts Substance Reaction Event Type PredniSONE increased heart rate Drug Allergy Lyrica leg swelling Drug Allergy Hydrocodone-Acetaminophen itching Drug Allergy Demerol panic attacks Drug Allergy Cipro rash Drug Allergy Aspirin rash Drug Allergy Problems Problem Type Condition Code Onset Dates Condition Status Problem DM w/o complication type II E11.9 Active Problem Thyroid cancer, medullary carcinoma C73 Active Problem Post-surgical hypothyroidism E89.0 Active Problem Eustachian tube dysfunction, bilateral H69.83 Active Assessment Thyroid cancer, medullary carcinoma C73 Active Problem Tobacco abuse Z72.0 Active Assessment Eustachian tube dysfunction, bilateral H69.83 Active Assessment Myalgia M79.1 Active Problem Dysthymia F34.1 Active Problem Myalgia M79.1 Active Problem Other fatigue R53.83 Active Problem Pain in joint, lower leg, right M25.561 Active Problem Cervicalgia M54.2 Active Problem Pain in joint, lower leg 719.46 Active Problem Chronic gingivitis, plaque induced 523.10 Active Problem Other chronic pain 338.29 Active Problem Diabetes mellitus without mention of complication, type II or unspecified type, not stated as uncontrolled 250.00 Active Problem Benign paroxysmal positional vertigo 386.11 Active Problem Postsurgical hypothyroidism 244.0 Active Problem Asthma, unspecified, unspecified status 493.90 Active Problem Anxiety 300.00 Active Assessment Dysthymia F34.1 Active Problem Sciatica 724.3 Active Problem Right knee pain 719.46 Active Medications Medication Code System Code Instructions Start Date End Date Status Dosage HydrOXYzine HCl [facility] [address]-06 25 MG Orally 3 times a day 1 tablet as needed Nicotine Polacrilex [facility] [address]-81 2 MG Mouth/Throat 24 time(s) a day Jun 29, 2015 1 piece as needed Clonazepam [facility] [address]-11 1 MG Orally 3 times a day, PRN Apr 06, 2015 0.5-1 tablet must last one month Metformin HCl [facility] [address]-39 1000 MG Orally Twice a day Mar 21, 2015 1 tablet with meals [place] [facility] [address]-30 31G X 6 MM Once a day September 01, 2015 as directed ProAir HFA [facility] [address]-35 90 mcg/actuation Inhalation 4 times a day inhale 2 puffs by Inhalation route every 4 hours as needed PRN shortness of breath/cough Test strips NDC 0 Test Strips Once a day DX: E11.9 Apr 15, 2015 as directed Victoza [facility] [address]-30 18 MG/3ML Subcutaneous Once a day September 01, 2015 0.2 mg Flonase NDC 0 50 MCG/DOSE Nasally twice a day September 19, 2015 1-2 spray in each nostril Gemfibrozil [facility] [address]-05 600 MG Orally Twice a day 1 tablet by Oral route 2 times per day Claritin [facility] [address]-41 10 MG Orally Once a day Jun 29, 2015 1 tablet Meclizine HCl [facility] [address]-23 25 MG Orally 3 times a day May 30, 2015 1 tablet as needed Diclofenac Potassium [facility] [address]-78 50 MG Orally Twice a day Mar 14, 2015 1 tablet Hydrocodone-Acetaminophen [facility] [address]-62 7.5-325 MG Orally 3 times a day September 01, 2015 1 tablet as needed Flexeril [facility] [address]-81 10 MG Orally Three times a day September 01, 2015 1 tablet Amitriptyline HCl [facility] [address]-37 25 MG Orally Once a day October 19, 2014 .5-1.5 tablet at bedtime Prilosec [facility] [address]-58 40 MG Orally Once a day 1 capsule levothyroxine [facility] 0 150 1tab daily Simvastatin [facility] [address]-59 20 MG Orally Once a day. NEED FASTING LAB PRIOR TO FURTHER REFILLS take 1 tablet Procedures Procedure Coding System Code Date Office Visit, Est Pt., Level 3 CPT-4 41734 September 19, 2015 Vital Signs Date/Time: September 19, 2015 Temperature 98.2 F Weight 266 lbs Height 66 in BMI 42.93 Index Blood Pressure Diastolic 70 mmHg Blood Pressure Systolic 120 mmHg Cardiac Monitoring Heart Rate 75 bpm Results No Known Results Summary Purpose eClinicalWorks Submission
--- OUTSIDE RECORDS SUMMARY | 2017-01-31 07:14 | XMS REPORT ---
Author Author DORA LEVINE Organization eClinicalWorks Address Unknown Phone Unavailable Care Team Providers Care Candle Maker Name Role Phone DORA LEVINE CP Unavailable [...] joint, lower leg, right M25.561 Active Assessment DM w/o complication type II E11.9 Active Problem Other chronic pain 338.29 Active Problem Postsurgical hypothyroidism 244.0 Active Problem Anxiety 300.00 Active Problem Asthma, unspecified, unspecified status 493.90 Active Problem Right knee pain 719.46 Active Problem Sciatica 724.3 Active Problem DM w/o complication type II E11.9 Active Medications Medication Code System Code Instructions Start Date End Date Status Dosage Metformin HCl [facility] [address]-30 1000 MG Orally Twice a day Mar 21, 2015 1 tablet with meals Prilosec [facility] [address]-75 40 mg Orally Once a day 1 capsule Simvastatin [facility] [address]-95 20 mg Orally Once a day. NEED FASTING LAB PRIOR TO FURTHER REFILLS take 1 tablet Results No Known Results Summary Purpose eClinicalWorks Submission
--- OUTSIDE RECORDS SUMMARY | 2017-01-31 07:14 | XMS REPORT ---
Author Author DORA LEVINE [facility] eClinicalWorks Address Unknown Phone Unavailable Care Team Providers Care Customer Complaint Service Supervisor Name Role Phone DORA LEVINE CP [...] C73 Active Problem Post-surgical hypothyroidism E89.0 Active Assessment Myalgia M79.1 Active Assessment Anxiety 300.00 Active Assessment Upper respiratory tract infection, unspecified type J06.9 Active Problem Pain in joint, lower leg [...] Date End Date Status Dosage ProAir HFA [facility] [address]-17 90 mcg/actuation Inhalation 4 times a day inhale 2 puffs by Inhalation route every 4 hours as needed PRN shortness of breath/cough Diclofenac Potassium [facility] [address]-55 50 MG Orally Twice a day Mar 14, 2015 1 tablet Metformin HCl [facility] [address]-48 1000 MG Orally Twice a day Mar 21, 2015 1 tablet with meals Amitriptyline HCl [facility] [address]-00 25 MG Orally Once a day October 19, 2014 .5-1.5 tablet at bedtime Norflex [facility] [address]-37 100 MG Orally every 12 hrs Mar 22, 2015 1 tablet Simvastatin [facility] [address]-39 20 MG Orally Once a day take 1 tablet levothyroxine [place] 0 150 1tab daily Prilosec [facility] [address]-71 20 MG Orally 2 times a day 1 capsule Test strips [place] 0 Test Strips Once a day DX: E11.9 Apr 15, 2015 as directed Clonazepam [facility] [address]-30 1 MG Orally Twice a day Apr 06, 2015 1 tablet Promethazine-Codeine [facility] [address]-28 6.25-10 MG/5ML Orally 3 times a day Apr 26, 2015 5 ml as needed Tessalon Perles [facility] [address]-10 100 MG Orally Three times a day Apr 18, 2015 1 capsule as needed HydrOXYzine HCl [facility] [address]-72 25 MG Orally 3 times a day 1 tablet as needed Acetaminophen-Codeine [facility] [address]-39 300-15 MG Orally every 6 hrs Apr 1 tablet as needed Gemfibrozil [facility] [address]-29 600 MG Orally Twice a day 1 tablet by Oral route 2 times per day Procedures Procedure Coding System Code Date Office Visit, Est Pt., Level 3 CPT-4 70565 Apr 26, 2015 Vital Signs Date/Time: Apr 26, 2015 Temperature 98.1 F Weight 254 lbs Height 66 in BMI 40.99 Index Blood Pressure Diastolic 76 mmHg Blood Pressure Systolic 110 mmHg Cardiac Monitoring Heart Rate 84 bpm Results No Known Results Summary Purpose eClinicalWorks Submission
--- OUTSIDE RECORDS SUMMARY | 2017-01-31 07:14 | XMS REPORT ---
Author Author DORA LEVINE [facility] eClinicalWorks Address Unknown Phone Unavailable Care Team Providers Care Barrel Filler Name Role Phone DORA LEVINE CP Unavailable [...] in joint, lower leg 719.46 Active Assessment Anxiety 300.00 Active Problem Chronic gingivitis, plaque induced 523.10 Active Problem Other chronic pain 338.29 Active Problem Asthma, unspecified, unspecified status 493.90 Active Medications Medication Code System Code Instructions Start Date End Date Status Dosage Diclofenac Potassium [facility] [address]-15 50 MG Orally Twice a day Mar 14, 2015 1 tablet Amitriptyline HCl [facility] [address]-98 25 MG Orally Once a day October 19, 2014 .5-1.5 tablet at bedtime levothyroxine [facility] 0 150 1tab daily Prilosec [facility] [address]-81 20 MG Orally 2 times a day 1 capsule Venlafaxine HCl [facility] [address]-41 37.5 MG Orally Twice a day Apr 06, 2015 1 tablet with food Simvastatin [facility] [address]-20 20 MG Orally Once a day take 1 tablet Clonazepam [facility] [address]-64 1 MG Orally Twice a day Apr 06, 2015 .5 -1 tablet Norflex [facility] [address]-48 100 MG Orally every 12 hrs Mar 22, 2015 1 tablet ProAir HFA [facility] [address]-58 90 mcg/actuation Inhalation 4 times a day inhale 2 puffs by Inhalation route every 4 hours as needed PRN shortness of breath/cough Metformin HCl [facility] [address]-66 1000 MG Orally Twice a day Mar 21, 2015 1 tablet with meals Gemfibrozil [facility] [address]-73 600 MG Orally Twice a day 1 tablet by Oral route 2 times per day HydrOXYzine HCl [facility] [address]-32 25 MG Orally 3 times a day 1 tablet as needed Procedures Procedure Coding System Code Date Office Visit, Est Pt., Level 3 CPT-4 59612 Apr 06, 2015 Vital Signs Date/Time: Apr 06, 2015 Temperature 98.1 F Weight 250.6 lbs Height 66 in BMI 40.44 Index Blood Pressure Diastolic 80 mmHg Blood Pressure Systolic 150 mmHg Cardiac Monitoring Heart Rate 100 bpm Results No Known Results Summary Purpose eClinicalWorks Submission
--- OUTSIDE RECORDS SUMMARY | 2017-01-31 07:14 | XMS REPORT ---
Author Author DROA LEVINE [facility] eClinicalWorks Address Unknown Phone Unavailable Care Team Providers Care Caustic Strength Inspector Name Role Phone DORA LEVINE CP Unavailable [...] w/o complication type II E11.9 Active Assessment Postsurgical hypothyroidism 244.0 Active Problem Diabetes mellitus without mention of complication, type II or unspecified type, not stated as uncontrolled 250.00 Active Problem Pain in joint, lower leg 719.46 Active Assessment Myalgia M79.1 Active Problem Chronic gingivitis, plaque induced 523.10 Active Problem Other chronic pain 338.29 Active Problem Asthma, unspecified, unspecified status 493.90 Active Medications Medication Code System Code Instructions Start Date End Date Status Dosage Norflex [facility] [address]-31 100 MG Orally every 12 hrs Mar 22, 2015 1 tablet Metformin HCl [facility] [address]-44 1000 MG Orally Twice a day Mar 21, 2015 1 tablet with meals Gemfibrozil [facility] [address]-70 600 MG Orally Twice a day 1 tablet by Oral route 2 times per day HydrOXYzine HCl [facility] [address]-42 25 MG Orally 3 times a day 1 tablet as needed ProAir HFA [facility] [address]-13 90 mcg/actuation Inhalation 4 times a day inhale 2 puffs by Inhalation route every 4 hours as needed PRN shortness of breath/cough Prilosec [facility] [address]-04 20 MG Orally 2 times a day 1 capsule Xanax [facility] [address]-85 1 MG Orally 3 times a day. DO NOT FILL UNTIL October 26, 2014 1 tablet Simvastatin [facility] [address]-25 20 MG Orally Once a day take 1 tablet Diclofenac Potassium [facility] [address]-06 50 MG Orally Twice a day Mar 14, 2015 1 tablet Amitriptyline HCl [facility] [address]-63 25 MG Orally Once a day October 19, 2014 .5-1.5 tablet at bedtime levothyroxine [facility] 0 150 1tab daily Procedures Procedure Coding System Code Date Office Visit, Est Pt., Level 3 CPT-4 41094 Mar 22, 2015 Vital Signs Date/Time: Mar 22, 2015 Temperature 97.8 F Weight 253 lbs Height 66 in BMI 40.83 Index Blood Pressure Diastolic 70 mmHg Blood Pressure Systolic 124 mmHg Cardiac Monitoring Heart Rate 70 bpm Results No Known Results Summary Purpose eClinicalWorks Submission
--- OUTSIDE RECORDS SUMMARY | 2017-01-31 07:15 | XMS REPORT ---
Author Author DORA LEVINE Organization eClinicalWorks Address Unknown Phone Unavailable Care Team Providers Care Supervisor [employer] Name Role Phone DORA LEVINE CP Unavailable [...] Asthma, unspecified, unspecified status 493.90 Active Medications No Known Medications Results No Known Results Summary Purpose eClinicalWorks Submission
--- OUTSIDE RECORDS SUMMARY | 2017-01-31 07:15 | XMS REPORT ---
Author Author DORA LEVINE Organization eClinicalWorks Address Unknown Phone Unavailable Care Team Providers Care Director Of Clinical Services Name Role Phone DORA LEVINE CP Unavailable Allergies No Known Allergies Problems Problem Type Condition Code Onset Dates Condition Status Problem Right knee pain 719.46 Active Problem Post-surgical hypothyroidism E89.0 Active Problem DM w/o complication type II E11.9 Active Problem Tobacco abuse Z72.0 Active Assessment Postsurgical hypothyroidism 244.0 Active Problem Pain in joint, lower leg, right M25.561 Active Problem Eustachian tube dysfunction, bilateral H69.83 Active Problem Other fatigue R53.83 Active Problem Thyroid cancer, medullary carcinoma C73 Active Problem Cervicalgia M54.2 Active Problem Myalgia M79.1 Active Problem Diabetes mellitus without mention of complication, type II or unspecified type, not stated as uncontrolled 250.00 Active Problem Pain in joint, lower leg 719.46 Active Assessment Anxiety 300.00 Active Problem Other chronic pain 338.29 Active Problem Sciatica 724.3 Active Problem Benign paroxysmal positional vertigo 386.11 Active Problem Chronic gingivitis, plaque induced 523.10 Active Problem Postsurgical hypothyroidism 244.0 Active Problem Asthma, unspecified, unspecified status 493.90 Active Problem Anxiety 300.00 Active Medications Medication Code System Code Instructions Start Date End Date Status Dosage Gemfibrozil [facility] [address]-72 600 MG Orally Twice a day 1 tablet by Oral route 2 times per day ProAir HFA [facility] [address]-88 90 mcg/actuation Inhalation every 4 hrs prn SOB /cough inhale 2 puffs levothyroxine [place] 0 150 orally Once a day 1 tablet Simvastatin [facility] [address]-92 20 MG Orally Once a day take 1 tablet Ibuprofen [facility] [address]-72 800 MG Orally Three times a day May 20, 2015 1 tablet Clonazepam [facility] [address]-01 1 MG Orally 3 times a day Apr 06, 2015 0.5-1 tablet Results No Known Results Summary Purpose eClinicalWorks Submission
--- OUTSIDE RECORDS SUMMARY | 2017-01-31 07:15 | XMS REPORT ---
Author Author DORA ELVINE Organization eClinicalWorks Address Unknown Phone Unavailable Care Team Providers Care Hedis Nurse Name Role Phone DORA LEVINE CP Unavailable [...] Start Date End Date Status Dosage Simvastatin [facility] [address]-50 20 MG Orally Once a day. NEED FASTING LAB PRIOR TO FURTHER REFILLS take 1 tablet Results No Known Results Summary Purpose eClinicalWorks Submission
--- OUTSIDE RECORDS SUMMARY | 2017-01-31 07:15 | XMS REPORT ---
Author Author DORA LEVINE [facility] eClinicalWorks Address Unknown Phone Unavailable Care Team Providers Care Political Geographer Name Role Phone DORA LEVINE CP Unavailable [...] w/o complication type II E11.9 Active Assessment Upper respiratory tract infection, unspecified type J06.9 Active Problem Diabetes mellitus without mention of complication, type II or unspecified type, not stated as uncontrolled 250.00 Active Problem Pain in joint, lower leg 719.46 Active Assessment Pain in joint, lower leg 719.46 Active Problem Chronic gingivitis, plaque induced 523.10 Active Problem Other chronic pain 338.29 Active Problem Asthma, unspecified, unspecified status 493.90 Active Medications Medication Code System Code Instructions Start Date End Date Status Dosage Norflex [facility] [address]-83 100 MG Orally every 12 hrs Mar 22, 2015 1 tablet Gemfibrozil [facility] [address]-10 600 MG Orally Twice a day 1 tablet by Oral route 2 times per day Simvastatin [facility] [address]-45 20 MG Orally Once a day take 1 tablet Clonazepam [facility] [address]-78 1 MG Orally Twice a day Apr 06, 2015 .5 -1 tablet levothyroxine [facility] 0 150 1tab daily Prilosec [facility] [address]-67 20 MG Orally 2 times a day 1 capsule Metformin HCl [facility] [address]-87 1000 MG Orally Twice a day Mar 21, 2015 1 tablet with meals Tramadol HCl [facility] [address]-39 50 MG Orally 3 times a day Apr 12, 2015 1-2 tablet as needed Diclofenac Potassium [facility] [address]-47 50 MG Orally Twice a day Mar 14, 2015 1 tablet Amitriptyline HCl [facility] [address]-86 25 MG Orally Once a day October 19, 2014 .5-1.5 tablet at bedtime HydrOXYzine HCl [facility] [address]-16 25 MG Orally 3 times a day 1 tablet as needed ProAir HFA [facility] [address]-06 90 mcg/actuation Inhalation 4 times a day inhale 2 puffs by Inhalation route every 4 hours as needed PRN shortness of breath/cough Procedures Procedure Coding System Code Date Office Visit, Est Pt., Level 3 CPT-4 98727 Apr 12, 2015 Vital Signs Date/Time: Apr 12, 2015 Temperature 98.1 F Weight 250.6 lbs Height 66 in BMI 40.44 Index Blood Pressure Diastolic 76 mmHg Blood Pressure Systolic 130 mmHg Cardiac Monitoring Heart Rate 89 bpm Results No Known Results Summary Purpose eClinicalWorks Submission
--- OUTSIDE RECORDS SUMMARY | 2017-01-31 07:15 | XMS REPORT ---
Author Author DORA LEVINE [facility] eClinicalWorks Address Unknown Phone Unavailable Care Team Providers Care Welding Operator Name Role Phone DORA LEVINE CP [...] Active Problem Post-surgical hypothyroidism E89.0 Active Assessment Cervicalgia M54.2 Active Problem Pain in joint, [...] Instructions Start Date End Date Status Dosage Prilosec [facility] [address]-10 20 MG Orally 2 times a day 1 capsule Test strips ND 0 Test Strips Once a day DX: E11.9 Apr 15, 2015 as directed HydrOXYzine HCl [facility] [address]-15 25 MG Orally 3 times a day 1 tablet as needed ProAir HFA [facility] [address]-59 90 mcg/actuation Inhalation 4 times a day inhale 2 puffs by Inhalation route every 4 hours as needed PRN shortness of breath/cough Amitriptyline HCl [facility] [address]-01 25 MG Orally Once a day October 19, 2014 .5-1.5 tablet at bedtime Gemfibrozil [facility] [address]-74 600 MG Orally Twice a day 1 tablet by Oral route 2 times per day Diclofenac Potassium [facility] [address]-19 50 MG Orally Twice a day Mar 14, 2015 1 tablet Clonazepam [facility] [address]-21 1 MG Orally Twice a day Apr 06, 2015 .5 -1 tablet Simvastatin [facility] [address]-47 20 MG Orally Once a day take 1 tablet levothyroxine [facility] 0 150 1tab daily Norflex [facility] [address]-53 100 MG Orally every 12 hrs Mar 22, 2015 1 tablet Metformin HCl [facility] [address]-12 1000 MG Orally Twice a day Mar 21, 2015 1 tablet with meals Tramadol HCl [facility] [address]-89 50 MG Orally 3 times a day Apr 12, 2015 1-2 tablet as needed Tessalon Perles [facility] [address]-74 100 MG Orally Three times a day Apr 18, 2015 1 capsule as needed Procedures Procedure Coding System Code Date Office Visit, Est Pt., Level 3 CPT-4 59738 Apr 19, 2015 Vital Signs Date/Time: Apr 19, 2015 Temperature 98 F Weight 250.3 lbs Height 66 in BMI 40.40 Index Blood Pressure Diastolic 70 mmHg Blood Pressure Systolic 134 mmHg Cardiac Monitoring Heart Rate 86 bpm Results No Known Results Summary Purpose eClinicalWorks Submission
--- OUTSIDE RECORDS SUMMARY | 2017-01-31 07:16 | XMS REPORT ---
Author Author DORA LEVINE Organization eClinicalWorks Address Unknown Phone Unavailable Care Team Providers Care Electric Gas Appliances Demonstrator Name Role Phone DORA LEVINE CP Unavailable Allergies No Known Allergies Problems Problem Type Condition Code Onset Dates Condition Status Problem DM w/o complication type II E11.9 Active Problem Thyroid cancer, medullary carcinoma C73 Active Problem Post-surgical hypothyroidism E89.0 Active Problem Eustachian tube dysfunction, bilateral H69.83 Active Problem Tobacco abuse Z72.0 Active Problem Dysthymia F34.1 Active Problem Myalgia [...] status 493.90 Active Problem Anxiety 300.00 Active Problem Sciatica 724.3 Active Problem Right knee pain 719.46 Active Medications Medication Code System Code Instructions Start Date End Date Status Dosage Clonazepam [facility] [address]-82 1 MG Orally 3 times a day, PRN Apr 06, 2015 0.5-1 tablet must last one month Results No Known Results Summary Purpose eClinicalWorks Submission
--- OUTSIDE RECORDS SUMMARY | 2017-01-31 07:16 | XMS REPORT ---
Author Author DORA LEVINE Organization eClinicalWorks Address Unknown Phone Unavailable Care Team Providers Care Litharge Supervisor Name Role Phone DORA LEVINE CP [...]
--- OUTSIDE RECORDS SUMMARY | 2017-01-31 07:16 | XMS REPORT ---
Author Author DORA LEVINE [facility] eClinicalWorks Address Unknown Phone Unavailable Care Team Providers Care Extractor Operator Helper Name Role Phone DORA LEVINE CP Unavailable [...] Thyroid cancer, medullary carcinoma C73 Active Assessment Anxiety 300.00 Active Problem Other chronic pain 338.29 Active Assessment Eustachian tube dysfunction, right H69.81 Active Problem Chronic gingivitis, plaque induced 523.10 [...] Instructions Start Date End Date Status Dosage Percocet [facility] [address]-97 5-325 MG Orally 3 times a day May 30, 2015 1 tablet as needed Clonazepam [facility] [address]-20 1 MG Orally 3 times a day Apr 06, 2015 0.5-1 tablet Simvastatin [facility] [address]-73 20 MG Orally Once a day take 1 tablet Metformin HCl [facility] [address]-86 1000 MG Orally Twice a day Mar 21, 2015 1 tablet with meals HydrOXYzine HCl [facility] [address]-64 25 MG Orally 3 times a day 1 tablet as needed Norflex [facility] [address]-37 100 MG Orally every 12 hrs Mar 22, 2015 1 tablet Amitriptyline HCl [facility] [address]-98 25 MG Orally Once a day October 19, 2014 .5-1.5 tablet at bedtime levothyroxine [facility] 0 150 1tab daily Prilosec [facility] [address]-17 20 MG Orally 2 times a day 1 capsule Gemfibrozil [facility] [address]-98 600 MG Orally Twice a day 1 tablet by Oral route 2 times per day Ibuprofen [facility] [address]-58 800 MG Orally Three times a day May 20, 2015 1 tablet Test strips [facility] 0 Test Strips Once a day DX: E11.9 Apr 15, 2015 as directed Diclofenac Potassium [facility] [address]-33 50 MG Orally Twice a day Mar 14, 2015 1 tablet Meclizine HCl [facility] [address]-32 25 MG Orally 3 times a day May 30, 2015 1 tablet as needed ProAir HFA [facility] [address]-98 90 mcg/actuation Inhalation 4 times a day inhale 2 puffs by Inhalation route every 4 hours as needed PRN shortness of breath/cough Procedures Procedure Coding System Code Date Office Visit, Est Pt., Level 3 CPT-4 31574 Jun 15, 2015 Vital Signs Date/Time: Jun 15, 2015 Temperature 98.3 F Weight 254 lbs Height 66 in BMI 40.99 Index Blood Pressure Diastolic 84 mmHg Blood Pressure Systolic 132 mmHg Cardiac Monitoring Heart Rate 84 bpm Results No Known Results Summary Purpose eClinicalWorks Submission
--- OUTSIDE RECORDS SUMMARY | 2017-01-31 07:16 | XMS REPORT ---
Author Author DORA LEVINE Organization eClinicalWorks Address Unknown Phone Unavailable Care Team Providers Care Press Operator Assistant Name Role Phone DORA LEVINE CP Unavailable Allergies No Known Allergies Problems Problem Type Condition Code Onset Dates Condition Status Problem Right knee pain 719.46 Active Problem Post-surgical hypothyroidism E89.0 Active Problem DM w/o complication type II E11.9 Active Problem Tobacco abuse Z72.0 Active Problem [...] in joint, lower leg 719.46 Active Problem Other chronic pain 338.29 Active Problem Sciatica 724.3 Active Problem Benign paroxysmal positional vertigo 386.11 Active Problem Chronic gingivitis, plaque induced 523.10 Active Problem Postsurgical hypothyroidism 244.0 Active Problem Asthma, unspecified, unspecified status 493.90 Active Problem Anxiety 300.00 Active Medications No Known Medications Results No Known Results Summary Purpose eClinicalWorks Submission
[2017-01-31] MEDS ORDERED: ceFAZolin 2 GM/50 ML NS 50 ML ONE (07:23)
[2017-01-31] MEDS ORDERED: LIDOCAINE/EPI 1%-1:200,000 (XYLOCAINE) 30 ML VIAL ONE (07:39)
[2017-01-31] MEDS ORDERED: LACTATED RINGERS 1,000 ML IV PRN (07:55)
[2017-01-31] MEDS ORDERED: CATHETER FLUSH 10 ML SYR IV PRN (08:00)
[2017-01-31] MEDS ORDERED: FAMOTIDINE 20MG/2ML IV (PEPCID) IV ONE (08:00)
[2017-01-31] MEDS ORDERED: MIDAZOLAM 2 MG/2 ML (VERSED) VIAL IV ONE (08:00)
[2017-01-31 08:15] VITALS: BP 130/86
[2017-01-31] MEDS ORDERED: MIDAZOLAM 2 MG/2 ML (VERSED) VIAL ONE (08:28)
[2017-01-31] MEDS ORDERED: PROPOFOL INJECTION 0 ML IV ONE (08:28)
[2017-01-31] MEDS ORDERED: LACTATED RINGERS 1,000 ML IV ONE (08:33)
[2017-01-31] MEDS ORDERED: SEVOFLURANE (ULTANE) 15 ML INHAL SOLN ONE ×2 (08:33→09:30)
[2017-01-31] MEDS ORDERED: fentaNYL INJECTION 100 MCG/2 ML AMP ONE (08:33)
[2017-01-31] MEDS ORDERED: ONDANSETRON 4 MG/2 ML (SDV) Z0FRAN ONE (08:36)
--- NOTE | 2017-01-31 09:02 | Progress Note-Pre Operative ---
Pre-Operative Progress Note H&P Reviewed The H&P was reviewed, patient examined and no changes noted. Time Seen by Provider: 08:56 Date H&P Reviewed: Jan 31, 2017 Time H&P Reviewed: 09:00 Pre-Operative Diagnosis: Right breast mass ORIN FLOWERS DO Jan 31, 2017 09:01
[2017-01-31] MEDS: ceFAZolin 2 GM/NS 50 ML IV ONE ×2 (09:03→09:24)
[2017-01-31] MEDS ORDERED: proPOfol 200 MG/20 ML (DIPRIVAN) VIAL IV ONE (09:28)
--- NOTE | 2017-01-31 09:37 | Progress Note-Post Operative ---
Post-Operative Progess Note Surgeon (s)/Clubhouse Manager (s) Surgeon ORIN FLOWERS DO Clubhouse Manager: none Pre-Operative Diagnosis Right breast mass Post-Operative Diagnosis Same pending pathology Procedure & Operative Findings Date of Procedure 01/31/17 Procedure Performed/Findings Right breast biopsy Anesthesia Type LMA Estimated Blood Loss Estimated blood loss (mL): less than 5ml Specimens/Packing Specimens Removed right breast mass ORIN FLOWERS DO Jan 31, 2017 09:37
--- NOTE | 2017-01-31 09:40 | Discharge Inst-Surgical ---
Discharge Inst-Surgical Depart Medication/Instructions New, Converted or Re-Newed RX: Other (no medications given) Patient Instructions Follow up Appt: Make appointment for 1 week. Instructions: No strenuous activity. May shower in 24 hours, no tub bath or soaking. No Smoking Skin/Wound Care: Wear a support bra all day for next 7 days. You need to leave the Dermabond on it will fall off on its own. Symptoms to Report: Appetite Changes, Extremity Discoloration, Numbness/Tingling, Swelling Increased , Bleeding Excessive, Eyesight Changes, Pain Increased, Urine Color Change, Constipation(Persistent), Fever over 101 degree F, Pain/Pressure in chest, Urinating Difficulty, Cough Up/Vomit Blood, Heart Beat Irreg/Pounding, Pain/ Pressure in jaw, Vaginal Bleeding Increase, Cramps in feet or legs, Lightheadedness, Pain/Pressure in shoulder, Diarrhea(Persistent), Memory Changes Suddenly, Questions/Concerns, Weight gain consecutive days, Dizziness/ Fainting, Nausea/Vomiting, Shortness of Breath, Weight gain over 2 pounds If questions or concerns contact your physician Or seek help at emergency department. Activity Activity as Tolerated: Yes Activity Instructions: Avoid Pulling & Pushing, Avoid Stress to Incision Driving Instructions: No Driving/Refer to Dr. Ellis Discharge Diet: No Restrictions Diet After 24 Hours: Clear Liquid if Nauseous If Any Problems/Questions/Issu: Contact Your Physician, Go to Emergency Room Skin/Wound Care Infection Signs and Symptoms: Increased Redness, Foul Odor of Wound, Increased Drainage, Skin Itchy or Has a Rash, Increased Swelling, Temperature Above 101 F Bathing Instructions: Shower Operative Area Clean and Dry: Keep Incision Clean/Dry Stitches/Julio Cesar/Dermabond Dis: Dermabond Ice Pack: Ice On and Off Site ORIN FLOWERS DO Jan 31, 2017 09:40
--- NOTE | 2017-01-31 10:11 | OPERATIVE REPORT ---
DATE OF SERVICE: PREOPERATIVE DIAGNOSES: Right breast mass. POSTOPERATIVE DIAGNOSIS: Right breast mass, pending pathology. PROCEDURE: Excision of right breast mass. SURGEON: Dr. Kat. COMPRESSOR TECHNICIAN: None. ANESTHESIA: LMA. SPECIMEN: Right breast mass. BLOOD LOSS: Less than 5 mL FLUIDS: Per anesthesia. POSTOPERATIVE CONDITION: Stable. INDICATION FOR PROCEDURE: The patient is a 46-year-old female with a history of thyroid cancer who has new increasing breast masses and wants to get them biopsied. FINDINGS: The patient had a right breast mass removed and sent to pathology. PROCEDURE NOTE: After informed consent was obtained, the patient was brought to the operating room, placed on the operating table in supine position. She was sterilely prepped and draped in normal fashion. Local lidocaine was used to infiltrate the skin just above the breast mass. I then made an incision with #15 blade, carried down through the skin into the subcutaneous tissue, then deep down to subcutaneous tissue with Bovie electrocautery, creating flaps in the superior and inferior direction and then able to grasp the mass and then dissecting it out with Bovie electrocautery, removing the mass en bloc. There was a little bit of bleeding from a vessel. This was grasped with a hemostat and then controlled with Bovie electrocautery. Also, some bleeding from the skin edges, controlled with Bovie electrocautery. Copiously irrigated with sterile water. Once noted there was no bleeding, I then elected to close the incision closing with 4-0 undyed Monocryl 3 interrupted subcuticular stitches. Area was cleaned and dried. Dermabond placed and patient then transferred to recovery room in stable condition. Sponge, instrument and needle counts correct at the end of the case. Job ID: [id number] DocumentID: [id number] Dictated Date: 01/31/2017 09:42:40 Lithographic Plate Maker Date: 01/31/2017 10:11:37 Dictated By: ORIN KAT DO
[2017-01-31 10:25] VITALS: BP 122/72
[2017-01-31 10:55] VITALS: BP 126/67
[2017-01-31 11:25] VITALS: BP 135/86
[2017-01-31 11:30] VITALS: BP 135/86
== END 2017-01-31 11:30 | disposition home or self-care (01) ==
LOC: SDC 07:07
PROVIDERS: ATTEND Surgery
DX: N64.1 Fat necrosis of breast (principal); C73 Malignant neoplasm of thyroid gland; E89.0 Postprocedural hypothyroidism; E11.9 Type 2 diabetes mellitus without complications; E78.5 Hyperlipidemia, unspecified; F41.9 Anxiety disorder, unspecified; K21.9 Gastro-esophageal reflux disease without esophagitis; J45.909 Unspecified asthma, uncomplicated; J44.9 Chronic obstructive pulmonary disease, unspecified; F17.210 Nicotine dependence, cigarettes, uncomplicated; E66.01 Morbid (severe) obesity due to excess calories; Z68.41 Body mass index [BMI] 40.0-44.9, adult; Z79.899 Other long term (current) drug therapy; Z79.84 Long term (current) use of oral hypoglycemic drugs
CPT/HCPCS: 82962; 87081

== ENCOUNTER 2017-06-20 17:29 | Emergency (ER) | payer MEDICAID, OTHER ==
[~2017-06-20] VITALS: Ht 167.6 cm; Wt 127.9 kg
--- NOTE | 2017-06-20 17:56 | ED General ---
General Stated Complaint: NAUSEA,FEVER,BODY ACHES,COUGH Source of Information: Patient Exam Limitations: No Limitations History of Present Illness Date Seen by Provider: Jun 20, 2017 Time Seen by Provider: 17:53 Initial Comments To ER with nausea and fever body aches and cough. Symptoms since yesterday. She was seen today and given a prescription for Tamiflu but has not started it yet. She brings her 2 grandchildren to ER to be checked out and states "I thought I be checked out again while I was here" Timing/Duration: 1-2 Days Severity: Moderate Allergies and Home Medications Allergies Coded Allergies: aspirin (Unverified Allergy, Unknown, HIVES, 01/28/17) atorvastatin (Verified Allergy, Unknown, decrease kidney function, 01/28/17 ) ciprofloxacin (Unverified Allergy, Unknown, HIVES, 01/28/17) meperidine (Unverified Allergy, Unknown, PANIC ATTACKS, 01/28/17) morphine (Verified Allergy, Unknown, itching all over, 01/28/17) pioglitazone (Unverified Allergy, Unknown, CAUSED BS TO SPIKE INTO 700, ) prednisone (Unverified Allergy, Unknown, PANIC ATTACKS, 01/28/17) rosuvastatin (Verified Allergy, Unknown, decrease kidney function, 01/28/17 ) Uncoded Allergies: tape (Allergy, Unknown, blisters, 08/26/14) Home Medications Albuterol Sulfate 8.5 Gm Aer.w.adap, 2 PUFF IH Q4H PRN for WHEEZING, (Reported) PRN WHEEZING Alprazolam 2 Mg Tablet, 2 MG PO TID, (Reported) Gemfibrozil 600 Mg Tablet, 600 MG PO DAILY, (Reported) Levothyroxine Sodium 150 Mcg Tablet, 150 MCG PO DAILY, (Reported) Metformin Hcl 1,000 Mg Tablet, 1,000 MG PO BID WITH MEALS, (Reported) Oxycodone HCl 10 Mg Tablet, 10 MG PO QID PRN for PAIN-MODERATE, (Reported) Oxycodone HCl 10 Mg Tab.er.12h, 10 MG PO BID, (Reported) Pantoprazole Sodium 40 Mg Tablet.dr, 40 MG PO DAILY, (Reported) Simvastatin 20 Mg Tablet, 20 MG PO DAILY, (Reported) Constitutional: see HPI EENTM: see HPI Respiratory: no symptoms reported Cardiovascular: no symptoms reported Genitourinary: no symptoms reported Musculoskeletal: no symptoms reported Skin: no symptoms reported Psychiatric/Neurological: No Symptoms Reported Hematologic/Lymphatic: No Symptoms Reported Immunological/Allergic: no symptoms reported Past Ldvogdb-Rjchrn-Cfawep Hx Patient Social History Type Used: Cigarettes Recent Foreign Travel: No Contact w/Someone Who Travel: No Recent Hopitalizations: Yes Immunizations Up To Date Date of Pneumonia Vaccine: Mar 03, 2013 Date of Influenza Vaccine: Mar 03, 2016 Seasonal Allergies Seasonal Allergies: Yes Surgeries Surgeries: Gallbladder, Hysterectomy, Thyroidectomy, Tubal Ligation Respiratory Respiratory Disorders: Asthma, COPD Cardiovascular Cardiac Disorders: High Cholesterol Reproductive System Hx Reproductive Disorders: No Sexually Transmitted Disease: No HIV/AIDS: 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 Genitourinary Genitourinary Disorders: UTI-Chronic Gastrointestinal Gastrointestinal Disorders: Gastroesophageal Reflux Musculoskeletal Musculoskeletal Disorders: Arthritis Endocrine Endocrine Disorders: Diabetes, Non-Insulin dep HEENT Loss of Vision: Bilateral Cancer Cancer: Lymphoma, Thyroid Did You Recieve Any Treatments: Yes Type of Tx Receive: Radiation, Surgical Intervention Psychosocial Behavioral Health Disorders: Anxiety Blood Transfusions Adverse Reaction to a Blood Tr: No Family Medical History Family Medial History: Alcoholism G8 BROTHER Arthritis 19 FATHER 19 MOTHER Cardiovascular disease 19 MOTHER Diabetes mellitus 19 FATHER 19 MOTHER G8 BROTHER G8 SISTER Hypertension 19 MOTHER G8 BROTHER G8 SISTER Myocardial infarction 19 MOTHER Prostate cancer 19 FATHER No Family History of: AIDS Abdominal aortic aneurysm Alzheimer's disease Cancer of mouth Cataracts Colon cancer Completed stroke Cystic fibrosis Drug abuse Glaucoma Kidney disease Neoplasm Osteoporosis Parkinson's disease Psychosocial problem Respiratory disorder Seizure disorder Severe allergy Thyroid disease Tuberculosis Physical Exam Vital Signs Capillary Refill : General Appearance: No Apparent Distress, WD/WN Eyes: Bilateral Eye Normal Inspection, Bilateral Eye PERRL, Bilateral Eye EOMI HEENT: PERRL/EOMI, TMs Normal Neck: Full Range of Motion, Normal Inspection Respiratory: Normal Breath Sounds, No Accessory Muscle Use, No Respiratory Distress Cardiovascular: Regular Rate, Rhythm, Normal Peripheral Pulses Gastrointestinal: Non Tender, Soft Extremity: Normal Capillary Refill, Normal Inspection Neurologic/Psychiatric: Alert, Oriented x3, No Motor/Sensory Deficits Skin: Normal Color, Warm/Dry Progress/Results/Core Measures Suspected Sepsis SIRS Temperature: Pulse: Respiratory Rate: Blood Pressure / Mean: Results/Orders Vital Signs/I&O Capillary Refill : Departure Impression Impression: Primary Impression: Influenza Disposition: 01 HOME, SELF-CARE Condition: Stable Departure-Patient Inst. Decision time for Depature: 17:55 Referrals: DYAN OG MD (PCP/Family) Primary Care Physician MIREYA BONNER APRN Jun 20, 2017 17:56
[2017-06-20 18:42] VITALS: BP 134/86
== END 2017-06-20 18:42 | disposition home or self-care (01) ==
LOC: EDUNIT# 17:29 → ER 17:31
DX: J11.1 Influenza due to unidentified influenza virus with other respiratory manifestations (principal); E11.9 Type 2 diabetes mellitus without complications; F41.9 Anxiety disorder, unspecified; K21.9 Gastro-esophageal reflux disease without esophagitis; J44.9 Chronic obstructive pulmonary disease, unspecified; E78.00 Pure hypercholesterolemia, unspecified; Z85.42 Personal history of malignant neoplasm of other parts of uterus; Z87.440 Personal history of urinary (tract) infections; Z79.84 Long term (current) use of oral hypoglycemic drugs; Z98.51 Tubal ligation status; Z90.710 Acquired absence of both cervix and uterus; Z92.3 Personal history of irradiation; Z80.42 Family history of malignant neoplasm of prostate
CPT/HCPCS: 99282

== ENCOUNTER 2018-07-19 09:36 | Emergency (ER) | payer MEDICAID ==
[~2018-07-19] VITALS: Ht 165.1 cm; Wt 117.9 kg
[2018-07-19 10:59] VITALS: BP 143/73
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
== END 2018-07-19 11:53 | disposition home or self-care (01) ==
LOC: EDUNIT# 09:36 → ER 09:40
DX: G89.29 Other chronic pain (principal); F41.9 Anxiety disorder, unspecified; J44.9 Chronic obstructive pulmonary disease, unspecified; E11.9 Type 2 diabetes mellitus without complications; E78.00 Pure hypercholesterolemia, unspecified; F17.210 Nicotine dependence, cigarettes, uncomplicated; Z85.72 Personal history of non-Hodgkin lymphomas; Z85.850 Personal history of malignant neoplasm of thyroid; Z82.49 Family history of ischemic heart disease and other diseases of the circulatory system; Z98.890 Other specified postprocedural states; Z87.440 Personal history of urinary (tract) infections; Z90.710 Acquired absence of both cervix and uterus; Z98.51 Tubal ligation status; Z88.6 Allergy status to analgesic agent; Z88.8 Allergy status to other drugs, medicaments and biological substances; Z88.5 Allergy status to narcotic agent; Z91.048 Other nonmedicinal substance allergy status; Z79.51 Long term (current) use of inhaled steroids; Z79.84 Long term (current) use of oral hypoglycemic drugs
CPT/HCPCS: 99282

== ENCOUNTER → 2019-12-22 | Outpatient (CLI) | payer MEDICAID ==
[~2019-12-22] MED LIST changes: +OMEP40CA27 PO; -OMEP40CA36 PO
--- NOTE | 2019-12-22 13:23 | Diagnostic Imaging Report ---
PROCEDURE: Thyroid. TECHNIQUE: Multiple Real-time grayscale images were obtained of the thyroid in various projections. INDICATION: Thyroidectomy for thyroid cancer in 2010. FINDINGS: No evidence of residual or recurrent thyroid tissue within the thyroid bed. No enlarged lymph nodes are seen along the cervical chain in the neck. IMPRESSION: No evidence of recurrent tumor or developing cervical chain adenopathy. Dictated by: Dictated on workstation # [id number]
== END ==
LOC: RAD 11:54
DX: Z85.850 Personal history of malignant neoplasm of thyroid (principal); Z90.89 Acquired absence of other organs
CPT/HCPCS: 76536